=== PATIENT | male | born 1995 | race Caucasian/White ===

== ENCOUNTER 2024-01-19 06:01 | Emergency (ER) | payer SELFPAY ==
[2024-01-19 06:04] VITALS: BP 121/83; PULSE 84; RESP 18; TEMP 36.7; O2SAT 99; BMI 20.3
--- NOTE | 2024-01-19 06:08 | ED_ITS ---
HPI - Extremity Problem General: Chief complaint: Extremity Injury, Lower Stated complaint: left ankle pain Time Seen by Provider: 01/19/24 06:07 Source: patient Mode of arrival: ambulatory History of Present Illness: 28-year-old male presents emergency room complaint of left ankle pain. Inversion injury while at work twisted his ankle that happened yesterday. He took some prescription pain medications he got removed previous prescription mild relief this morning is increased swelling and some developing ecchymosis he is unable to stand without severe pain came to the emergency room with assistance of a friend and then they used a wheelchair as soon as he arrived here. No previous history of injury to that ankle no previous surgeries. MD Complaint: joint swelling and joint pain Relieving factors: immobilization, elevation and rest Exacerbating factors: range of motion and weight bearing Review of Systems Musc: Reports: joint pain Physical Exam Narrative: EXAM NARRATIVE: Significant amount of swelling of the lateral aspect of the left ankle dorsalis pedis posterior tibialis pulses intact neurovascularly intact. No obvious defor mity large area of ecchymosis no from the lateral malleolus inferior across the dorsum of the foot. Tender to touch. No obvious deformity. Course Vital Signs: Vital signs: Vital Signs Temperature 98.1 F 01/19/24 06:04 Pulse Rate 84 01/19/24 06:04 Respiratory Rate 18 01/19/24 06:04 Blood Pressure 121/83 01/19/24 06:04 Pulse Oximetry 99 01/19/24 06:04 Oxygen Delivery Me thod Room Air 01/19/24 06:04 MDM - Extremity (Nontraumatic) Medical Decision Making No fracture identified on the plain films patient has significant amount of swelling and discomfort though. Suspect he did disrupt some ligaments is difficult to examine because of the degree of pain and swelling. Will place him in a posterior splint start him on anti-inflammatories ice and elevate for relief. Refer to podiatry for further evaluation definitive treatment advanced imaging if appropriate. Medical Records I reviewed the patient's medical records. Lab Data I reviewed the patient's lab results. All radiology interpretation(s) finalized by discharge Discharge Plan Discharge Patient Disposition: Home Clinical Impression: Ankle sprain and strain Condition: Stable Prescriptions: New diclofenac sodium 75 mg tablet,delayed release (DR/EC) 75 mg PO Q12H PRN (Reason: pain) Qty: 20 0RF No Action cyclobenzaprine 5 mg tablet 5 mg PO TID PRN (Reason: muscle spasm) Qty: 30 0RF prednisone 20 mg tablet 40 mg PO DAILY 5 Days Qty: 10 0RF Discharge Orders: Discharge ED (Routine); Ordered 01/19/24 Ordered By: Giovanny Quinonez Discharge Diet: Usual diet Discharge Activity: Limit activity as instructed Patient Instructions: Ankle Sprain (ED), Opioid Safety, Pain Management Activity Restrictions/Additional Instructions: Thank you for choosing [facility] for your healthcare needs today. Please realize this is an emergency room and that we are providing you with a medical screening exam and this may not be complete and all inclusive of all the testing and or work up that you may need to determine your ailment or severity of your illness. It is very important that you follow up as instructed or that you return to the Emergency Department should you have concerns or if your condition changes or worsens in any way. You are seen today for left ankle pain. X-rays did not show any acute fracture however given the degree of swelling recommend that you wear a splint and be nonweightbearing we will refer you to see the supervisor denture department in the clinic. You can use diclofenac as needed for pain also recommend elevation and ice to the affected area. Coding Level of Care Code ED Bee Farmer for Jillian Escudero
--- NOTE | 2024-01-19 06:13 | XRR_ITS ---
PROCEDURE INFORMATION: Exam: XR Left Ankle Exam date and time: 01/19/2024 6:49 AM Age: 28 years old Clinical indication: Injury or trauma; Other: Inversion injury while at work; Work related; Sprain or strain; Ankle; Left; Injury date: 01/18/24 TECHNIQUE: Imaging protocol: Radiologic exam of the left ankle. Views: 3 or more views. COMPARISON: No relevant prior studies available. FINDINGS: Bones/joints: Normal. No fracture or dislocation. Soft tissues: Normal. XR/XR ankle LT min 3V* [id number] IMPRESSION: No acute findings.
[2024-01-19 07:34] VITALS: BP 121/83; PULSE 84; RESP 18; TEMP 36.7; O2SAT 99
--- NOTE | 2024-01-19 08:30 | DCPLANNER ---
Message sent to Ortho for a foolow up - Ankle sprain
== END 2024-01-19 07:36 | disposition home or self-care (01) ==
PROVIDERS: Emergency Provider Family Medicine
DX: S93.402A Sprain of unspecified ligament of left ankle, initial encounter (principal); S96.912A Strain of unspecified muscle and tendon at ankle and foot level, left foot, initial encounter; X50.1XXA Overexertion from prolonged static or awkward postures, initial encounter
CPT/HCPCS: 29515; 73610; 99283; E0114